=== PATIENT | male | born 1965 | race Caucasian/White ===

== ENCOUNTER 2017-10-07 23:32 | Emergency (ER) | payer BC, OTHER ==
[~2017-10-07] VITALS: Ht 177.8 cm; Wt 131.5 kg
[2017-10-08 01:09] LABS: BASOPHILS % (AUTO) 0 % (0-10); EOSINOPHILS # (AUTO) 0.1 10^3/uL (0.0-0.3); EOSINOPHILS % (AUTO) 1 % (0-10); HEMATOCRIT 40 % (40-54); HEMOGLOBIN 13.6 G/DL (13.3-17.7); LYMPHOCYTES # (AUTO) 1.8 X 10^3 (1.0-4.0); LYMPHOCYTES % (AUTO) 17 % (12-44); MEAN CORPUSCULAR HEMOGLOBIN 30 PG (25-34); MEAN CORPUSCULAR HGB CONC 34 G/DL (32-36); MEAN CORPUSCULAR VOLUME 88 FL (80-99); MEAN PLATELET VOLUME 10.9 FL (7.4-10.4); MONOCYTES # (AUTO) 0.7 X 10^3 (0.0-1.0); MONOCYTES % (AUTO) 6 % (0-12); NEUTROPHILS # (AUTO) 8.1 X 10^3 (1.8-7.8); NEUTROPHILS % (AUTO) 76 % (42-75); PLATELET COUNT 237 10^3/uL (130-400); RED BLOOD COUNT 4.52 10^6/uL (4.35-5.85); RED CELL DISTRIBUTION WIDTH 13.7 % (10.0-14.5); WHITE BLOOD COUNT 10.7 10^3/uL (4.3-11.0)
[2017-10-08] MEDS ORDERED: MECLIZINE 25 MG (ANTIVERT) TAB PO ONE (01:15)
[2017-10-08 01:20] LABS: ALANINE AMINOTRANSFERASE 19 U/L (0-55); ALBUMIN 4.6 GM/DL (3.2-4.5); ALKALINE PHOSPHATASE 131 U/L (40-136); BILIRUBIN,TOTAL 0.6 MG/DL (0.1-1.0); BUN/CREATININE RATIO 17; CALCIUM 9.5 MG/DL (8.5-10.1); CARBON DIOXIDE 22 MMOL/L (21-32); CHLORIDE 106 MMOL/L (98-107); CREATININE SERUM 1.15 MG/DL (0.60-1.30); GFR ESTIMATED > 60; GLUCOSE 107 MG/DL (70-105); POTASSIUM 4.2 MMOL/L (3.6-5.0); SODIUM 141 MMOL/L (135-145); TOTAL PROTEIN 7.8 GM/DL (6.4-8.2)
--- NOTE | 2017-10-08 01:46 | ED Syncope ---
General Chief Complaint: Dizziness/Syncope Stated Complaint: DIZZY N/V/D Nursing Triage Note: Patient advises he began experiencing dizziness and vomitting x 3 hrs ago that has become progressively worse. Source of Information: Patient Exam Limitations: No Limitations (EMMA TATUM) History of Present Illness Date Seen by Provider: Oct 08, 2017 Time Seen by Provider: 01:00 Initial Comments Patient is a 51-year-old male who presents to the emergency room with complaints of dizziness that started this evening. He reports that the dizziness started when he was lying on the couch watching TV, he states that laying his head back on a pillow makes the dizziness worse. When the patient stands up the dizziness resolves. He denies any shortness of breath, chest pain , nausea, vomiting. Timing/Prior Episodes: No Prior History Symptoms Prior to Episode: None, Lightheadedness Precipitating Factors: Other (lying) Loss of Consciousness: No Loss of Consciousness (lying down) Current Symptoms: Dizziness (EMMA TATUM) Current Symptoms: No Chest Pain; Nausea (JARET BETANCOURT MD) Allergies and Home Medications Allergies Coded Allergies: No Known Drug Allergies (Unverified , 10/08/17) Patient Home Medication List Home Medication List Reviewed: Yes (EMMA TATUM) Home Medication List Reviewed: Yes (JARET BETANCOURT MD) Constitutional: see HPI, dizziness EENTM: no symptoms reported; No ear pain, No blurred vision, No double vision Respiratory: no symptoms reported Cardiovascular: see HPI; No chest pain, No edema, No Hx of Intervention; palpitations Gastrointestinal: no symptoms reported; No abdominal pain, No nausea, No vomiting Genitourinary: no symptoms reported; No dysuria Musculoskeletal: no symptoms reported; No back pain Skin: no symptoms reported, see HPI Psychiatric/Neurological: No Symptoms Reported; Denies Anxiety (EMMA TATUM) Constitutional: see HPI, dizziness; No fever Gastrointestinal: nausea, vomiting (JAERT BETANCOURT MD) Past [id number]-[id number]-Bnxdqm Hx Past Med/Social Hx: Reviewed Nursing Past Med/Soc Hx (EMMA TATUM) Past Med/Social Hx: Reviewed Nursing Past Med/Soc Hx (JARET BETANCOURT MD) Patient Social History Alcohol Use: Denies Use Recreational Drug Use: No Smoking Status: Never a Smoker Recent Foreign Travel: No Contact w/Someone Who Travel: No Recent Infectious Disease Expo: No Recent Hopitalizations: No Physical Abuse: No Sexual Abuse: No (EMMA TATUM STUDENT) Seasonal Allergies Seasonal Allergies: No (EMMA TATUM STUDENT) Past Medical History Surgeries: No Respiratory: No Cardiac: Yes (PVC's) Hypertension Genitourinary: No Gastrointestinal: No Musculoskeletal: No Endocrine: No HEENT: No Cancer: No Psychosocial: No Nursing Suicide Risk Score: 0 Integumentary: No Blood Disorders: No (EMMA TATUM STUDENT) Family Medical History Reviewed Nursing Family Hx (EMMA TATUM STUDENT) Reviewed Nursing Family Hx (JARET BETANCOURT MD) Physical Exam Vital Signs Vital Signs - First Documented 10/08/17 00:58 Temp 96.2 Pulse 80 Resp 14 B/P (MAP) 144/94 (111) Pulse Ox 95 O2 Delivery Room Air (JARET BETANCOURT MD) Vital Signs Capillary Refill : Less Than 3 Seconds (EMMA TATMU STUDENT) General Appearance: No Apparent Distress, WD/WN HEENT: PERRL/EOMI, TMs Normal, Normal ENT Inspection; No Photophobia Neck: Full Range of Motion, Normal Inspection, Non Tender Cardiovascular: Regular Rate, Rhythm, No Edema, Normal Peripheral Pulses Respiratory: Chest Non Tender, Lungs Clear, Normal Breath Sounds Gastrointestinal: Normal Bowel Sounds, No Organomegaly Back: Normal Inspection, No CVA Tenderness Extremities: Normal Inspection, Normal Range of Motion Neurologic/Psychiatric: Alert, Oriented x3, No Motor/Sensory Deficits, Normal 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, 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 Norm as Tested; No Facial Droop Cranial Nerves: Normal Hearing, Normal Speech Coordination/Gait: Normal Finger to Nose, Normal Gait, Negative Romberg's Sign Motor/Sensory: No Motor Deficit, No Sensory Deficit, No Pronator Drift Skin: Normal Color, Warm/Dry Lymphatic: No Adenopathy (EMMA TATUM STUDENT) HEENT: TMs Normal, Pharynx Normal Cardiovascular: Regular Rate, Rhythm, No Murmur Respiratory: Lungs Clear, Normal Breath Sounds Gastrointestinal: Non Tender, Soft (JARET BETANCOURT MD) Progress/Results/Core Measures Results/Orders Lab Results Laboratory Tests Test 10/08/17 00:55 Range/Units White Blood Count 10.7 4.3-11.0 10^3/uL Red Blood Count 4.52 4.35-5.85 10^6/uL Hemoglobin 13.6 13.3-17.7 G/DL Hematocrit 40 40-54 % Mean Corpuscular Volume 88 80-99 FL Mean Corpuscular Hemoglobin 30 25-34 PG Mean Corpuscular Hemoglobin Concent 34 32-36 G/DL Red Cell Distribution Width 13.7 10.0-14.5 % Platelet Count 237 130-400 10^3/uL Mean Platelet Volume 10.9 H 7.4-10.4 FL Neutrophils (%) (Auto) 76 H 42-75 % Lymphocytes (%) (Auto) 17 12-44 % Monocytes (%) (Auto) 6 0-12 % Eosinophils (%) (Auto) 1 0-10 % Basophils (%) (Auto) 0 0-10 % Neutrophils # (Auto) 8.1 H 1.8-7.8 X 10^3 Lymphocytes # (Auto) 1.8 1.0-4.0 X 10^3 Monocytes # (Auto) 0.7 0.0-1.0 X 10^3 Eosinophils # (Auto) 0.1 0.0-0.3 10^3/uL Basophils # (Auto) 0.0 0.0-0.1 10^3/uL D-Dimer 0.48 0.00-0.49 UG/ML Sodium Level 141 135-145 MMOL/L Potassium Level 4.2 3.6-5.0 MMOL/L Chloride Level 106 98-107 MMOL/L Carbon Dioxide Level 22 21-32 MMOL/L Anion Gap 13 5-14 MMOL/L Blood Urea Nitrogen 19 H 7-18 MG/DL Creatinine 1.15 0.60-1.30 MG/DL Estimat Glomerular Filtration Rate > 60 BUN/Creatinine Ratio 17 Glucose Level 107 H 70-105 MG/DL Calcium Level 9.5 8.5-10.1 MG/DL Total Bilirubin 0.6 0.1-1.0 MG/DL Aspartate Amino Transf (AST/SGOT) 15 5-34 U/L Alanine Aminotransferase (ALT/SGPT) 19 0-55 U/L Alkaline Phosphatase 131 40-136 U/L Total Protein 7.8 6.4-8.2 GM/DL Albumin 4.6 H 3.2-4.5 GM/DL (JARET BETANCOURT MD) My Orders Orders - JARTE BETANCOURT MD Cbc With Automated Diff (10/08/17 00:55) Comprehensive Metabolic Panel (10/08/17 00:55) Fibrin Degradation Products (10/08/17 00:55) Ekg Tracing (10/08/17 00:57) Di Iv Start (Assessment) .on IV start (10/08/17 00:57) Meclizine Tablet (Antivert Tablet) (10/08/17 01:15) Dexamethasone Injection (Decadron Inject (10/08/17 02:00) (JARET BETANCOURT MD) Medications Given in ED Current Medications Medications Dose Ordered Sig/Mark Route Start Time Stop Time Status Last Admin Dose Admin Dexamethasone Sodium Phosphate 10 mg ONCE ONCE IM 10/08/17 02:00 10/08/17 02:01 DC 10/08/17 02:05 10 MG Meclizine HCl 25 mg ONCE ONCE PO 10/08/17 01:15 10/08/17 01:16 DC 10/08/17 01:19 25 MG (JARET BETANCOURT MD) Vital Signs/I&O 10/08/17 00:58 Temp 96.2 Pulse 80 Resp 14 B/P (MAP) 144/94 (111) Pulse Ox 95 O2 Delivery Room Air (JARET BETANCOURT MD) Blood Pressure Mean: 111 Progress Progress Note : Time: 02:27 Progress Note Patient reports feeling much better at this time, after the administration of meclizine and Decadron he is able to move his head without becoming dizzy. He states that he feels well enough to go home at this time. We discussed the plans for continuing the meclizine [id number] 25 mg every 8 hours as needed for dizziness and the importance of increasing his fluid intake. (EMMA TATUM STUDENT) Progress Note : Progress Note Have seen and evaluated the patient and agree with above except as indicated. I have dictated the plan of care. Patient here with dizziness after playing down. States it's better when he sits not. He did have vomiting episode with his initial dizziness. He has not had anything like this before. Denies chest pain or breathing problems. Patient given meclizine and then Decadron and heaves much better afterwards. Discharged home with return precautions. Patient verbalize understanding instructions and agreement with plan. (JARET BETANCOURT MD) Departure Impression Primary Impression: Vertigo Disposition: 01 HOME, SELF-CARE Condition: Improved Departure-Patient Inst. Decision time for Depature: 02:29 (EMMA TATUM STUDENT) Patient Instructions: Vertigo (a Type of Dizziness) (DC) Add. Discharge Instructions: Meclizine/Antivert is now sold [id number], go to the pharmacy and pick this up and you may take 1 tab every 8 hours as needed for dizziness. Follow-up with your doctor within 1 week, call tomorrow morning for an appointment time. Return back to the emergency room for increased dizziness, nausea, vomiting, shortness of breath, chest pain, and/or any other concerns as needed. All discharge instructions reviewed with patient and/or family. Voiced understanding. EMMA TATUM STUDENT Oct 08, 2017 01:45 JARET BETANCOURT MD Oct 08, 2017 02:53
[2017-10-08] MEDS ORDERED: DEXAMETHASONE 10 MG/ML (DECADRON) 1 ML VIAL IM ONE (02:00)
[2017-10-08 03:19] VITALS: BP 126/87
== END 2017-10-08 03:19 | disposition home or self-care (01) ==
LOC: ER 23:35
DX: R42 Dizziness and giddiness (principal); I10 Essential (primary) hypertension
CPT/HCPCS: 36415; 80053; 85025; 85379; 93005; 96372